=== PATIENT | female | born 1950 | race Caucasian/White ===

== ENCOUNTER 2016-07-15 06:14 | Day surgery (SDC) | payer MEDICARE ==
[2016-07-12 08:41] LABS: HEMATOCRIT 35.2 % (36.0-48.0); HEMOGLOBIN 11.7 g/dL (12.0-16.0)
[2016-07-12 08:52] LABS: CALCIUM, SERUM 9.4 MG/DL (8.5-10.4); CHLORIDE, SERUM 100 MMOL/L (96-112); CO2 (CARBON DIOXIDE) 33 MMOL/L (24-34); POTASSIUM, SERUM 4.6 MMOL/L (3.5-5.3); SODIUM, SERUM 140 MMOL/L (135-148)
[2016-07-12 08:59] LABS: BUN (BLOOD UREA NITROGEN) 50 MG/DL (6-23); CREATININE 2.48 MG/DL (0.55-1.02); GFR AFRICAN AMERICAN 23 ML/MIN (>=60); GFR NON AFRICAN AMERICAN 20 ML/MIN (>=60); GLUCOSE, SERUM 180 MG/DL (60-99)
[~2016-07-15 06:14] MED LIST: *UNABLE1; CALTRA600D PO; CELEXA20 PO; CO Q-10200 MG PO; COREG12 PO; CRESTOR10 PO; DALIRESP500 MCG PO; FIBERCON PO; FISH-EPA1000 MG PO; HYZAAR 50/12.51 TAB PO; KLOR-CON 1010 MEQ PO; L20 PO; LANTUS SC; LEVOTHYROXIN125 MCG PO; LEVOTHYROXIN137 MCG PO; LORT7 PO; METANX PO; NEUR400 PO; NORCO1 TA2 PO; NORV5 PO; NOVLOGPUMP SC; POTASSIUM PO; PRILO PO; SINGULAIR1 PO; SPIRO25 PO; SYMBICORT 160/41 INH INH; TRILIPIX135 MG PO; TUDORZA PRESS400 MCG INH; VENTOLIN HFA INH; VITAMIN B-121000 MC1 SL; VITC500 PO; WELLXL150 PO; ZESTORETIC PO; ZYRTEC ALLGY10 MG PO
== END 2016-07-15 16:32 | disposition home or self-care (01) ==
LOC: SDC 06:14
PROVIDERS: Ophthalmology
PROC: 08RJ3JZ Replacement of Right Lens with Synthetic Substitute, Percutaneous Approach (ICD-10-PCS; principal; 2016-07-15 08:30)
DX: H25.11 Age-related nuclear cataract, right eye (principal); I50.9 Heart failure, unspecified; I13.0 Hypertensive heart and chronic kidney disease with heart failure and stage 1 through stage 4 chronic kidney disease, or unspecified chronic kidney disease; N18.9 Chronic kidney disease, unspecified; J45.909 Unspecified asthma, uncomplicated; G47.33 Obstructive sleep apnea (adult) (pediatric); E78.00 Pure hypercholesterolemia, unspecified; M19.90 Unspecified osteoarthritis, unspecified site; F32.9 Major depressive disorder, single episode, unspecified; Z88.1 Allergy status to other antibiotic agents; Z98.890 Other specified postprocedural states
CPT/HCPCS: 80048; 82962; 85014; 85018; 93005; J2405

== ENCOUNTER 2016-08-19 06:24 | Day surgery (SDC) | payer MEDICARE ==
[2016-08-17 12:27] LABS: HEMATOCRIT 36.1 % (36.0-48.0)
[2016-08-17 12:43] LABS: CALCIUM, SERUM 9.5 MG/DL (8.5-10.4); CHLORIDE, SERUM 101 MMOL/L (96-112); CO2 (CARBON DIOXIDE) 36 MMOL/L (24-34); CREATININE 2.49 MG/DL (0.55-1.02); GFR AFRICAN AMERICAN 23 ML/MIN (>=60); GFR NON AFRICAN AMERICAN 20 ML/MIN (>=60); POTASSIUM, SERUM 5.2 MMOL/L (3.5-5.3); SODIUM, SERUM 138 MMOL/L (135-148)
[2016-08-17 12:44] LABS: BUN (BLOOD UREA NITROGEN) 44 MG/DL (6-23); GLUCOSE, SERUM 219 MG/DL (60-99)
== END 2016-08-19 14:07 | disposition home or self-care (01) ==
LOC: SDC 06:24
PROVIDERS: Ophthalmology
PROC: 08RK3JZ Replacement of Left Lens with Synthetic Substitute, Percutaneous Approach (ICD-10-PCS; principal; 2016-08-19 09:15)
DX: H25.12 Age-related nuclear cataract, left eye (principal); J44.9 Chronic obstructive pulmonary disease, unspecified; G47.33 Obstructive sleep apnea (adult) (pediatric); Z99.89 Dependence on other enabling machines and devices; I11.0 Hypertensive heart disease with heart failure; I50.9 Heart failure, unspecified; E66.9 Obesity, unspecified; Z68.41 Body mass index [BMI] 40.0-44.9, adult; E11.8 Type 2 diabetes mellitus with unspecified complications; Z87.891 Personal history of nicotine dependence; Z98.890 Other specified postprocedural states
CPT/HCPCS: 80048; 82962; 85014; 85018; J2405